=== PATIENT | male | born 1995 | race African-American/Black ===

== ENCOUNTER 2019-06-29 22:51 | Emergency (ER) | payer OTHER ==
[~2019-06-29] VITALS: Ht 175.3 cm; Wt 68.5 kg
[2019-06-29 22:55] VITALS: BP 131/80
[2019-06-29] MEDS ORDERED: ALBUTEROL SULFATE/IPRATROPIU 3 ML SOL IH ONE (23:05)
[2019-06-29] MEDS ORDERED: DEXAMETHASONE 4 MG/ML VIAL PO STA (23:50)
[2019-06-30 00:22] VITALS: BP 142/77
== END 2019-06-30 00:22 | disposition home or self-care (01) ==
LOC: MED 22:51
DX: J45.901 Unspecified asthma with (acute) exacerbation (principal)
CPT/HCPCS: 94640; 99283; J1100; J7620; 94644

== ENCOUNTER 2021-11-24 21:30 | Emergency (ER) | payer BC, OTHER ==
[~2021-11-24] VITALS: Ht 172.7 cm; Wt 79.8 kg
[2021-11-24 22:30] VITALS: BP 132/69
[2021-11-25] MEDS ORDERED: NACL 0.9% 1,000 ML IV ONE (00:35)
[2021-11-25] MEDS ORDERED: ONDANSETRON 4 MG/2 ML VIAL IVP ONE (00:35)
[2021-11-25 01:10] LABS: BASOPHILS % (AUTO) 0.1 % (0.0-2.0); EOSINOPHILS % (AUTO) 0.2 % (0.0-4.0); HEMATOCRIT 44.4 % (36-52); HEMOGLOBIN 15.3 g/dL (12.0-18.0); LYMPHOCYTES # (AUTO) 0.6 K/uL (2.0-11.5); LYMPHOCYTES % (AUTO) 15.1 % (20.5-51.1); MEAN CORPUSCULAR HEMOGLOBIN 34 pg (27-31); MEAN CORPUSCULAR HGB CONC 34 g/dL (33-37); MEAN CORPUSCULAR VOLUME 99.4 fL (80-94); MONOCYTES # (AUTO) 0.3 K/uL (0.8-1.0); MONOCYTES % (AUTO) 7.8 % (1.7-9.3); NEUTROPHILS # (AUTO) 3.2 K/uL (1.8-7.7); NEUTROPHILS % (AUTO) 76.8 % (42.2-75.2); PLATELET COUNT (AUTO) 143 K/uL (140-450); RED BLOOD CELL COUNT(AUTO) 4.47 MIL/uL (4.20-6.10); RED CELL DISTRIBUTION WIDTH 13.2 % (11.6-13.7); WHITE BLOOD COUNT (AUTO) 4.2 K/uL (4.8-10.8)
--- NOTE | 2021-11-25 01:12 | NUR ---
26 Y/O MALE BIB SELF, C/O VOMITING, ABD PAIN, AND WEAKNESS. PT STATES HE IS UNABLE TO KEEP ANY FOOD OR WATER DOWN SINCE YESTERDAY. DENIES DIARRHEA OR CONASTIPATION; SKIN IS PINK/WARM/DRY; AAOX4 WITH EVEN AND STEADY GAIT; HR EVEN AND REGULAR; PT DENIES ANY FEVER, CP, SOB, OR COUGH AT THIS TIME; PATIENT STATES PAIN OF 7/10 AT THIS TIME; VSS; PATIENT POSITIONED FOR COMFORT; HOB ELEVATED; BEDRAILS UP X2; BED DOWN. ER MD MADE AWARE OF PT STATUS. HX: ASTHMA NKDA MED: ALBUTEROL
[2021-11-25 01:29] LABS: ALBUMIN 3.7 g/dL (3.4-5.0); ANION GAP 12.6 (8-16); CREATININE 1.2 mg/dL (0.6-1.3); POTASSIUM 3.6 mmol/L (3.5-5.1); TOTAL BILIRUBIN 0.6 mg/dL (0.0-1.0)
[2021-11-25] MEDS ORDERED: ONDA-188 SL (02:09)
[2021-11-25 02:14] VITALS: BP 115/72
--- NOTE | 2021-11-25 02:17 | NUR ---
Patient discharged with v/s stable. Written and verbal after care instructions given and explained. Patient alert, oriented and verbalized understanding of instructions. Ambulatory with steady gait. All questions addressed prior to discharge. ID band removed. Patient advised to follow up with PMD. Rx of ONDANSETRON given. Patient educated on indication of medication including possible reaction and side effects. Opportunity to ask questions provided and answered. A/OX4, VSS, AMBULATORY, UNLABORED BREATHING, AND CALM DEMEANOR
== END 2021-11-25 02:15 | disposition home or self-care (01) ==
LOC: MED 21:30
DX: A08.4 Viral intestinal infection, unspecified (principal); R11.10 Vomiting, unspecified; J45.909 Unspecified asthma, uncomplicated; Z79.899 Other long term (current) drug therapy
CPT/HCPCS: 36415; 80053; 85025; 96361; 96374; 99283; J2405; J7030

== ENCOUNTER 2023-07-15 11:16 | Emergency (ER) | payer BC, OTHER ==
[~2023-07-15] VITALS: Ht 172.7 cm; Wt 83.9 kg
[~2023-07-15 11:16] MED LIST: ONDA-188 SL
[2023-07-15 11:32] VITALS: BP 127/74; PULSE 87; RESP 18; TEMP 97.2; O2SAT 98
[2023-07-15] MEDS ORDERED: FAMOTIDINE 20 MG TAB PO ONE (12:50)
[2023-07-15] MEDS ORDERED: predniSONE 20 MG TAB PO ONE (12:50)
[2023-07-15] MEDS ORDERED: EPIN1KIT31 IM (12:55)
[2023-07-15] MEDS ORDERED: DIPH25TA53 PO (12:55)
[2023-07-15] MEDS ORDERED: LORA10OD45 PO (12:55)
[2023-07-15] MEDS ORDERED: PRED20TA5 PO (12:55)
[2023-07-15] MEDS ORDERED: FAMOTIDINE 20 MG TAB ONE (14:13)
[2023-07-15] MEDS ORDERED: predniSONE 20 MG TAB ONE (14:13)
== END 2023-07-15 16:29 | disposition left against medical advice (07) ==
LOC: MED 11:16
DX: R21 Rash and other nonspecific skin eruption (principal); L50.9 Urticaria, unspecified; R03.0 Elevated blood-pressure reading, without diagnosis of hypertension; J45.909 Unspecified asthma, uncomplicated; Z79.899 Other long term (current) drug therapy
CPT/HCPCS: 99281; J7512; Q0163